=== PATIENT | male | born 1975 | race African-American/Black ===

== ENCOUNTER 2022-09-02 14:34 | Emergency (ER) | payer MEDICARE ==
[~2022-09-02] VITALS: Ht 175.3 cm; Wt 90.7 kg
[2022-09-02 14:53] VITALS: BP 141/100
--- NOTE | 2022-09-02 15:12 | ER.PDOC ---
General Chief Complaint: Requesting Medical Care Stated Complaint: DRY COUGH Time seen by MD: 15:00 Source: patient Exam Limitations: no limitations History of Present Illness Timing/Duration: yesterday Severity: mild Associated Symptoms: hoarseness, cough Prior symptoms/Treatment: Similar symptoms previous Allergies: Coded Allergies: codeine (Verified Allergy, Unknown, 09/02/22) All Other Systems: Reviewed and Negative Reviewed Nursing Reviewed: Vital Signs, Abn. Noted Physical Exam General Appearance: alert, no distress Eye: eyes nml inspection, lids & conjunct. nml, PERRL, no nystagmus Ear: ear nml Nose: nose nml Throat: pharynx nml, airway nml Neck: nml inspection, supple Respiratory: no resp.distress, breath sounds nml Abdomen: non-tender, no organomegaly CVS: reg rate & rhythm, heart sounds nml Skin: color nml, no rash, warm/dry Extremities: non-tender, nml ROM, no pedal edema NEURO/PSYCH: oriented x 3, CN's nml as tested, motor nml, sensation nml, moo d/affect nml Results/Orders Results/Orders Orders - ERIC PHAM MD Covid19 Antigen Melanie Shilpa (09/02/22 15:06) Influenza A&B (09/02/22 15:06) Strep Screen (09/02/22 15:06) Vital Signs Date Time Temp Pulse Resp B/P (MAP) Pulse Ox O2 Delivery O2 Flow Rate FiO2 09/02/22 14:53 98.2 90 18 141/100 (114) 93 Room Air* 0 21 09/02/22 14:53 98.2 90 18 93 09/02/22 14:53 98.2 90 18 Laboratory Tests Test 09/02/22 14:53 Influenza Type A Antigen NEGATIVE (NEG) Influenza Type B Antigen NEGATIVE (NEG) SARS-CoV-2 Antigen (Rapid) NEGATIVE (NEGATIVE) Group A Streptococcus Screen NEGATIVE (NEGATIVE) ER DEPART Departure Time of Disposition: 16:11 Disposition: 01 HOME / SELF CARE / HOMELESS Impression: Primary Impression: URI (upper respiratory infection) Condition: Stable Referrals: PCP,UNKNOWN (PCP) PRIMARY CARE PROVIDER Duration or Time Spent with Pa: 13m ERIC PHAM MD Sep 02, 2022 15:12
== END 2022-09-02 16:21 | disposition home or self-care (01) ==
LOC: ER 14:34
DX: J06.9 Acute upper respiratory infection, unspecified (principal); Z20.822 Contact with and (suspected) exposure to COVID-19; Z88.5 Allergy status to narcotic agent
CPT/HCPCS: 87070; 87426; 87804; 87880; 99283